=== PATIENT | male | born 1985 | race African-American/Black ===

== ENCOUNTER → 2021-01-13 13:33 | Outpatient (CLI) | payer BC, SELFPAY ==
[2021-01-13 13:43] LABS: Basophils % 0.6 % (0.1-2.0); Eosinophils # 0.7 K/mm3 (0.0-0.4); Eosinophils % 9.1 % (0.1-12.0); Hematocrit 47.9 % (42.0-52.0); Hemoglobin 15.7 g/dL (14.1-18.0); Lymphocytes # 2.2 K/mm3 (0.7-4.5); Lymphocytes % 30.6 % (10-50); Mean Corpuscular HGB Conc 32.9 g/dL (31.8-35.4); Mean Corpuscular Hemoglobin 31.2 pg (27.0-31.2); Mean Corpuscular Volume 95.1 fl (80-94); Mean Platelet Volume 9.6 fl (7.4-10.4); Monocytes # 0.4 K/mm3 (0.1-1.0); Monocytes % 5.4 % (1.7-9.3); Neutrophils # 3.9 K/mm3 (1.8-7.8); Neutrophils % 54.4 % (37.0-80.0); Platelet Count 215 K/mm3 (142-424); Red Blood Count 5.04 M/mm3 (4.60-6.20); White Blood Count 7.2 K/mm3 (4.8-10.8)
[2021-01-13 14:04] LABS: Alanine Aminotransferase 22 U/L (12-78); Albumin Level 4.3 g/dl (3.5-5.0); Albumin/Globulin Ratio 1.5 (1.1-1.8); Alkaline Phosphatase 83 U/L (38-126); Anion Gap 7.9 mEq/L (5-15); Aspartate Amino Transferase 26 U/L (17-59); Bilirubin,Total 0.4 mg/dl (0.2-1.3); Blood Urea Nitrogen 9 mg/dl (9-20); Calcium 9.5 mg/dl (8.4-10.2); Carbon Dioxide 27 mmol/L (22.0-30.0); Chloride 108 mmol/L (98-107); Chol/HDL Ratio 3.6 (1-3.5); Cholesterol 208 mg/dl (140-200); Estimated Glomerular Filt Rate 96 ml/min (>60); GFR (African American) 116 ML/MIN (>60); Globulin 2.9 g/dL (1.3-3.2); Glucose 79 mg/dl (74-100); HDL Cholesterol 58 mg/dl (40-60); Potassium 3.9 mmoL/L (3.5-5.1); Sodium 139 mmol/L (136-145); Total Protein,Serum 7.2 g/dl (6.3-8.2); Triglycerides 145 mg/dl (30-150); VLDL Cholesterol 29 mg/dL (0-40)
[2021-01-13 14:19] LABS: T4 (Thyroxine) 7.5 ug/dl (5.53-11.0)
[2021-01-13 14:32] LABS: Thyroid Stimulating Hormone 0.46 uIU/mL (0.465-4.68)
== END ==
PROVIDERS: Visit Provider Nurse Practitioner Family
DX: Z01.89 Encounter for other specified special examinations (principal)
CPT/HCPCS: 80053; 80061; 82306; 84436; 84443; 85025

== ENCOUNTER → 2021-02-14 11:04 | Outpatient (CLI) | payer BC, SELFPAY ==
[2021-02-14 11:34] LABS: Basophils # 0.1 K/mm3 (0-0.2); Basophils % 0.7 % (0.1-2.0); Eosinophils # 0.6 K/mm3 (0.0-0.4); Eosinophils % 8.4 % (0.1-12.0); Hematocrit 46.9 % (42.0-52.0); Hemoglobin 15.8 g/dL (14.1-18.0); Lymphocytes # 2.1 K/mm3 (0.7-4.5); Lymphocytes % 32.4 % (10-50); Mean Corpuscular HGB Conc 33.6 g/dL (31.8-35.4); Mean Corpuscular Hemoglobin 31.2 pg (27.0-31.2); Mean Corpuscular Volume 92.8 fl (80-94); Mean Platelet Volume 8.4 fl (7.4-10.4); Monocytes # 0.4 K/mm3 (0.1-1.0); Monocytes % 5.9 % (1.7-9.3); Neutrophils # 3.5 K/mm3 (1.8-7.8); Neutrophils % 52.6 % (37.0-80.0); Platelet Count 195 K/mm3 (142-424); Red Blood Count 5.06 M/mm3 (4.60-6.20); Red Cell Distribution Width 13.1 % (11.5-17.5); White Blood Count 6.6 K/mm3 (4.8-10.8)
[2021-02-14 14:20] LABS: Chloride 103 mmol/L (98-107); Sodium 138 mmol/L (136-145)
[2021-02-14 14:23] LABS: Blood Urea Nitrogen 9 mg/dl (9-20); Estimated Glomerular Filt Rate 85 ml/min (>60); GFR (African American) 103 ML/MIN (>60); Potassium 3.9 mmoL/L (3.5-5.1)
[2021-02-14 14:24] LABS: Anion Gap 9.9 mEq/L (5-15); Calcium 9.2 mg/dl (8.4-10.2); Carbon Dioxide 29 mmol/L (22.0-30.0); Glucose 96 mg/dl (74-100)
== END ==
PROVIDERS: Visit Provider Surgery
DX: Z01.812 Encounter for preprocedural laboratory examination (principal); Z11.52 Encounter for screening for COVID-19; Q34.9 Congenital malformation of respiratory system, unspecified
CPT/HCPCS: 36415; 80048; 85025; C9803; U0003; U0005

== ENCOUNTER 2021-02-15 06:57 | Day surgery (SDC) | payer BC, SELFPAY ==
[2021-02-15] VITALS (8 sets, daily range): BP systolic 118–136; BP diastolic 57–96; PULSE 72–86; RESP 14–18; TEMP 36.2–37.4; O2SAT 94–100; BMI 27.3
--- NOTE | 2021-02-15 09:10 | HMH.ANESCL ---
[facility] Anesthesia Checklist - Patient Identification Patient Identification: Arm Band - Structural Data Admitted From: Home Planned Operative Procedure/s: Excision sebaceous cyst Consent for Planned Operative Procedure(s) Verified: Yes - NPO Status Verified Time NPO: 00:00 - Additional verifications Anesthesia Reactions: No Hx Blood Transfusions: No Blood Transfusion Reaction: No - Airway Assessment C-Spine Mobility Assessed: Yes TMJ Mobility Assessed: Yes Dentition: Good Dentition - Neurological Assessment Level of Consciousness: Awake Hx Seizures: No Numbness or tingling in extremities: No - Anesthesia Plan Anesthesia Risk discussed: Yes Anesthesia Plan: Verified ASA Class: I Anesthesia Type: General [facility] History I have reviewed the patient's past medical history: Yes Medical History: Denies:: Asthma, Cancer, Diabetes Mellitus Type 1, Diabetes Mellitus Type 2, Internal Pacemaker, MRSA, Seizures *Have you ever received a pneumonia vaccine?: No *Have you received a flu vaccine this season?: No Other Medical History: Denies: Blood Transfusion Reaction Anesthesia experience/problems:: None Other Surgeries: Yes: No Previous Surgery, Other. No: Pacemaker Amputation: No Fractures: Yes - *Social History Last grade of school completed: High school graduate Smoking Status: Current every day smoker Tobacco Type: cigarettes # Packs/Day (cigarettes): 1 Alcohol Intake: current Alcohol Intake Frequency:: holidays/special occasions only Substance Use Type: marijuana *Occupational Status:: employed Housing: house Household Members: family *Travel in the last 8 weeks: None Family Hx:: Cancer
--- NOTE | 2021-02-15 10:23 | P.OP_ITS ---
Date of procedure: 02/15/21 Pre-op Diagnosis:: Inflamed sebaceous cyst on the chest Post-op Diagnosis:: Same Procedure performed:: Excision of inflamed sebaceous cyst Surgeon:: Piotr Alvarez MD [employer]:: Shaheed Vasquez Anesthesia: LMA Estimated blood loss (mL): 5 Clinical Note:: Patient recently presented for follow-up of the sebaceous cyst on his left mid chest. He is a 35-year-old male. He was referred by Kole Richmond for cyst on the chest and originally seen in the office on 01/24/2021. He was found to have what appeared to be an inflamed sebaceous cyst near the mid chest. He has tenderness when he abducts the left upper extremity. Denies any inciting event. Denies any drainage. After I initially saw him as a consultation I put him on some antibiotics consisting of Bactrim and cephalexin. He presents back stating the area has not significantly changed. He still has some focal tenderness. Given the persistence despite medical management plan was made for excision with possible closure. Operative findings:: Consistent with ruptured inflamed sebaceous cyst with ill-defined borders. Operative note:: Consent was obtained and patient was taken to the operating room. He was given preoperative antibiotic. He was positioned supine position. General anesthesia was induced. The area was prepped and draped. Lesion was marked with a skin marker for planned elliptical incision. Local anesthetic was infiltrated. Limited skin incision was made. There was some fluid and caseous material which exuded. There was no clearly defined cyst capsule as the cyst capsule had been obliterated. The wound was debrided. Wound was irrigated. Stasis was achieved with electrocautery. A couple of subdermal interrupted 3-0 Vicryl sutures were placed. Skin was closed loosely with interrupted 3-0 nylon. Clean dry sterile dressing was applied. Condition: stable Disposition: PACU Specimens:: Cyst Complications:: None immediately apparent
--- NOTE | 2021-02-15 10:28 | P.PN_ITS ---
[facility] Anesthesia Record Part I Intake, IV Amount: 800 Estimated blood loss (mL): 0 Urine output (mL): 0 Blood Pressure: 119/66 SaO2: 94 Pulse Rate: 79 Respiratory Rate: 14 Temperature: 99.4 F Patient is:: Drowsy Stable to PACU at:: 10:25
--- NOTE | 2021-02-15 10:55 | SUR.PHASEI ---
1054- report given to thuan hawkins in post op at this time.
--- NOTE | 2021-02-16 19:50 | P.PN_ITS ---
[facility] Anesthesia Record Part II Discharge Time: 10:55 Destination: home PACU nurse assessment reviewed?: Yes Patient Condition:: Good Anesthesia Complications:: None none Swallowing reflex intact?: Yes Cyanosis?: No Blood Pressure: 132/84 Pulse Rate: 78 Temperature: 97.1 F Mental Status: Alert & Oriented Pain level:: 0 Nausea and/or vomitting:: None Intake, IV Amount: 0
[2021-02-16 19:51] VITALS: BP 132/84; PULSE 78; TEMP 36.2
== END 2021-02-15 11:30 | disposition home or self-care (01) ==
LOC: OR 06:58
PROVIDERS: PCP Physician Assistant; Visit Provider Surgery
PROC: (CPT 11400; principal; 2021-02-15 09:45)
DX: L72.3 Sebaceous cyst (principal)
CPT/HCPCS: 11400; 12031; 96374

== ENCOUNTER 2021-03-27 10:23 | Emergency (ER) | payer BC, SELFPAY ==
[2021-03-27 11:45] VITALS: BP 122/75; PULSE 95; RESP 18; TEMP 37.1; O2SAT 95; BMI 27.3
--- NOTE | 2021-03-27 12:17 | HMH.EDUTC ---
[facility] Disposition Clinical Impression: COVID-19 virus test result unknown Upper respiratory infection Qualifiers: URI type: unspecified viral URI Qualified Code(s): J06.9 - Acute upper respiratory infection, unspecified Disposition: Home, Self-Care Condition on Discharge: Good Instructions: DI for COVID-19 (Suspected or Confirmed ) Additional Instructions: covid swab was sent to lab, call later today for results. self isolate until test results are known to be negative No sign of a bacterial infection. Likely viral. Viruses can take 7-14 days to run their course. Nasal saline and bulb syringe or nose Maribeth to remove nasal drainage to help with nasal congestion. Hard to eat, drink, sleep with nasal congestion so important to keep this cleaned out. Monitor temp. Tylenol or Motrin as needed for pain or fever Encourage fluids, water, Gatorade, Powerade, Pedialyte if /toddler/child Warm salt water gargles Warm fluids Sore throat lozenges Sleep elevated Humidifier/vaporizer Follow-up immediately for new or worsening symptoms or no noticeable improvement over the next 48-72 hours. Referrals: Aylin Covington PA [Primary Care Provider] - Time of Disposition: 12:19 Medical Decision Making - [place] Inquiry Pt receiving controlled substance: No Vital Signs: 03/27/21 11:45 Temperature 98.7 F Temperature Source Oral Pulse Rate [Right Radial] 95 H Respiratory Rate 18 Blood Pressure [Right Arm] 122/75 Blood Pressure Mean [Right Arm] 90 Blood Pressure Source [Right Arm] Automatic Cuff Blood Pressure Position [Right Arm] Sitting 02 Sat by Pulse Oximetry 95 Oxygen Delivery Method Room Air Orders (Tests/Meds): ORDERS Category Date Time Status Covid-19 Nasal PCR ([facility]) Routine Lab 03/27/21 11:51 Received [facility] HPI - General Chief complaint: Urgent [facility] Stated complaint: fever/chills, h/a Time Seen by Provider: 03/27/21 12:17 Mode of Arrival: Ambulatory Source of Information: Patient Limitations: No Limitations Description of Symptoms (Recalled from Triage Doc. by RN): Pt stated that he has had a Head Ache, and body chills since last night. HEENT Symptoms (Recalled from RN notes): No Resp Symptoms (Recalled from RN notes): No Skin Symptoms (Recalled from RN notes): No MS Symptoms (Recalled from RN notes): No Functional Status (Recalled from RN notes): n/a - History of Present Illness Provider Complaint: 35 yr old male presenets for body aches and chills since last pm - Related Data Allergies Allergy/AdvReac Type Severity Reaction Status Date / Time No Known Allergies Allergy Verified 03/27/21 11:50 - Worker's Comp Is this a Worker's Comp case?: No H History - Hepatitis A Screen Drug use history?: No High risk sexual behaviors?: No History of sexually transmitted infection?: No Currently employed?: No Childcare worker?: No Do you have indoor plumbing?: Yes Do you have electricity?: Yes Attestation statement:: This patient has been screened for Hepatitis A risk factors. I have reviewed the patient's past medical history: Yes Medical History: Denies:: Asthma, Cancer, Diabetes Mellitus Type 1, Diabetes Mellitus Type 2, Internal Pacemaker, MRSA, Seizures Other Medical History: Denies: Blood Transfusion Reaction Other Surgeries: Yes: No Previous Surgery, Other. No: Pacemaker Amputation: No Fractures: Yes Comment: ankle - Social History Smoking Status: Current every day smoker Tobacco Type: cigarettes # Packs/Day (cigarettes): 1 Alcohol Intake: current Alcohol Intake Frequency:: holidays/special occasions only Substance Use Type: marijuana Occupational Status: employed Housing: house Household Members: family Family Hx:: Cancer ROS Obtained: Yes Systems reviewed as appropriate & no additional complaints - Constitutional Constitutional: Reports system reviewed and no additional complaints, except as docu, Reports body ache, Reports chills, Reports fev
[2021-03-27 12:21] VITALS: BP 122/75; PULSE 95; RESP 18; TEMP 37.1; O2SAT 95
== END 2021-03-27 12:25 | disposition home or self-care (01) ==
PROVIDERS: Emergency Provider Nurse Practitioner Family; PCP Physician Assistant
DX: U07.1 COVID-19 (principal); J06.9 Acute upper respiratory infection, unspecified; F17.210 Nicotine dependence, cigarettes, uncomplicated
CPT/HCPCS: 99202; C9803; G0463; U0003; U0005

== ENCOUNTER 2023-05-04 22:56 | Outpatient (CLI) | payer OTHER, SELFPAY ==
[2023-05-04 17:54] LABS: Basophils # 0.1 K/mm3 (0-0.2); Basophils % 0.9 % (0.1-2.0); Eosinophils # 0.6 K/mm3 (0.0-0.4); Eosinophils % 8.5 % (0.1-12.0); Hematocrit 50.9 % (42.0-52.0); Hemoglobin 17.4 g/dL (14.1-18.0); Lymphocytes # 1.9 K/mm3 (0.7-4.5); Mean Corpuscular HGB Conc 34.2 g/dL (31.8-35.4); Mean Corpuscular Hemoglobin 31.5 pg (27.0-31.2); Mean Corpuscular Volume 92.2 fl (80-94); Mean Platelet Volume 10.6 fl (7.4-10.4); Monocytes # 0.4 K/mm3 (0.1-1.0); Neutrophils # 3.7 K/mm3 (1.8-7.8); Neutrophils % 56.5 % (37.0-80.0); Platelet Count 169 K/mm3 (142-424); Red Blood Count 5.52 M/mm3 (4.60-6.20); Red Cell Distribution Width 12.9 % (11.5-17.5); White Blood Count 6.6 K/mm3 (4.8-10.8)
[2023-05-04 17:59] LABS: Alanine Aminotransferase 43 U/L (12-78); Albumin Level 4.3 g/dl (3.5-5.0); Albumin/Globulin Ratio 1.5 (1.1-1.8); Alkaline Phosphatase 84 U/L (38-126); Aspartate Amino Transferase 37 U/L (17-59); Bilirubin,Total 0.7 mg/dl (0.2-1.3); Blood Urea Nitrogen 9 mg/dl (9-20); Calcium 9.4 mg/dl (8.4-10.2); Carbon Dioxide 24 mmol/L (22.0-30.0); Chloride 108 mmol/L (98-107); Chol/HDL Ratio 5.5 (1-3.5); Cholesterol 220 mg/dl (140-200); Estimated Glomerular Filt Rate 94 ml/min (>60); GFR (African American) 114 ML/MIN (>60); Globulin 2.9 g/dL (1.3-3.2); Glucose 132 mg/dl (74-100); HDL Cholesterol 40 mg/dl (40-60); Sodium 139 mmol/L (136-145); Total Protein,Serum 7.2 g/dl (6.3-8.2); Triglycerides 136 mg/dl (30-150); VLDL Cholesterol 27 mg/dL (0-40)
[2023-05-04 18:10] LABS: Direct LDL Cholesterol 125.47 mg/dL (100-129)
[2023-05-04 18:18] LABS: 25-OH Vitamin D, Total < 12.8 ng/mL (30-100)
[2023-05-07 12:44] LABS: Free Thyroxine Index 2.5 ug/dL (5.93-13.13); T4 (Thyroxine) 7.7 ug/dl (5.53-11.0); Triiodothryronine (T3) Uptake 33 % (23.5-40.5)
[2023-05-07 12:58] LABS: Thyroid Stimulating Hormone 0.09 uIU/mL (0.465-4.68)
== END 2023-05-04 23:59 ==
LOC: LAB.DROPOF 22:57
PROVIDERS: PCP Family Medicine; Visit Provider Family Medicine
DX: R53.83 Other fatigue (principal); E55.9 Vitamin D deficiency, unspecified; Z68.29 Body mass index [BMI] 29.0-29.9, adult
CPT/HCPCS: 80053; 80061; 82306; 84436; 84443; 84479; 85025

== ENCOUNTER 2023-05-07 06:42 | Outpatient (CLI) | payer OTHER, SELFPAY | END 2023-05-07 23:59 | PROVIDERS: PCP Family Medicine; Visit Provider Family Medicine | DX: R53.83 Other fatigue (principal) | CPT/HCPCS: 84436; 84443; 84479 ==

== ENCOUNTER 2025-03-20 14:29 | Emergency (ER) | payer OTHER, SELFPAY ==
--- OUTSIDE RECORDS SUMMARY | 2025-03-17 10:47 | XMS_ITS | Continuity of Care Document ---
Author Organization [facility] Phone Care Team Providers Care Top Lift Trimmer Name Role Phone MARIA FERNANDA GOMEZ Primary Attending Unavailable MARIA FERNANDA GOMEZ Unavailable Unavailable MARIA FERNANDA GOMEZ Admitting Unavailable NO, FAMILY P Primary Care ALLERGIES AND ADVERSE REACTIONS ALLERGIES AND ADVERSE REACTIONS Code System Allergy Substance Adverse Reaction Date Reaction (Severity) Comment Status Reported By Updated By No Known Allergies [id number] on March 16, 2025 12:52:01 AM UT RESULTS Patient: FRANCES WARNER Date of : 1985 LABORATORY RESULTS ORDER 200: THYROID STIMULATI NG HORMONE (LOINC: 3016-3) ORDER DATE: March 16, 2025 12:59:00 AM UTC Specimen Source: Serum/Plasm a Specimen Type: Acellular blo od (serum or plasma) specimen PERFORMING LAB: [address] [id number] Result Comment: Final Result Date: March 16, 2025 1:38:00 AM UTC (TECH: SF) LOINC TEST FLAG RESULT REFERENCE RANGE UPDA RUDDY BY 3016-3 Thyrotropin [Units/volume] in Serum or Plasma N 0.41 mIU/mL 0.34 mIU/mL - 4.80 mIU/mL March 16, 2025 1:38:00 AM UTC (TECH: SF) ORDER 300: CBC AUTO W DIFF ( LOINC: 94155-3) ORDER DATE: March 16, 2025 12:59:00 AM UTC Specimen Source: Whole Blood Specimen Type: Whole blood s ample PERFORMING LAB: [address] [id number] Result Comment: Final Result Date: March 16, 2025 1:18:00 AM UTC (TECH: [employer]) LOINC TEST FLAG RESULT REFERENCE RANGE UPDA RUDDY BY 6690-2 Leukocytes [#/volume] in Blood by Automated count N 7.5 10^3/uL 4.5 10^3/uL - 11.5 10^3/uL March 16, 2025 1:18:00 AM UTC ([employer]) 789-8 Erythrocytes [#/volume] in Blood by Automated count N 5.46 10^6/uL 4.25 10^6/uL - 5.57 10^6/uL March 16, 2025 1:18:00 AM UTC ([employer]) 718-7 Hemoglobin [Mass/volume] in Blood N 16.6 g/dL 13.5 g/dL - 17.2 g/dL March 16, 2025 1:18:00 AM UTC ([employer]) 21669-7 Hematocrit [Volume Fraction] of Blood N 49.1 % 42.0 % - 52.0 % March 16, 2025 1:18:00 AM UTC ([employer]) 787-2 Erythrocyte mean corpuscular volume [Entitic volume] by Automated count N 89.9 fl 80 fl - 95 fl March 16, 2025 1:18:00 AM UTC ([employer]) 87383-4 Erythrocyte mean corpuscular hemoglobin [Entitic mass] in Blood from [place]etus by Automated count N 30.4 pg 27.0 pg - 34.0 pg March 16, 2025 1:18:00 AM UTC ([employer]) 69804-3 Erythrocyte mean corpuscular hemoglobin concentration [Mass/volume] in Blood from Fetus by Automated count N 33.8 g/dL 32.0 g/dL - 36.0 g/dL March 16, 2025 1:18:00 AM UTC ([employer]) 08618-5 Platelets [#/volume] in Blood N 187 10^3/uL 150 10^3/uL - 450 10^3/uL March 16, 2025 1:18:00 AM UTC ([employer]) 79878-2 Erythrocyte distribution width [Ratio] L 11.9 % 12.3 % - 15.1 % March 16, 2025 1:18:00 AM UTC (TECH: [employer]) 69252-9 Platelet mean volume [Entitic volume] in Blood by Automated count H 10.5 fl 7.4 fl - 10.4 fl March 16, 2025 1:18:00 AM UTC (TECH: SF) 92760-1 Granulocytes/100 leukocytes in Blood by Automated count N 53.0 % 40 % - 75 % March 16, 2025 1:18:00 AM UTC (TECH: SF) 736-9 Lymphocytes/100 leukocytes in Blood by Automated count N 30.8 % 15 % - 57 % March 16, 2025 1:18:00 AM UTC (TECH: SF) 5905-5 Monocytes/100 leukocytes in Blood by Automated count N 8.1 % 4.0 % - 12.0 % March 16, 2025 1:18:00 AM UTC (TECH: SF) 713-8 Eosinophils/100 leukocytes in Blood by Automated count H 7.2 % 0.0 % - 4.0 % March 16, 2025 1:18:00 AM UTC (TECH: SF) 706-2 Basophils/100 leukocytes in Blood by Automated count N 0.4 % 0.0 % - 1.0 % March 16, 2025 1:18:00 AM UTC (TECH: SF) 98255-0 Immature granulocytes [#/volume] in Blood N 0.5 % 0.0 % - 0.8 % March 16, 2025 1:18:00 AM UTC (TECH: SF) 95266-0 Granulocytes [#/volume] in Blood by Automated count N 3.97 10^3/uL March 16, 2025 1:18:00 AM UTC (TECH: SF) 731-0 Lymphocytes [#/volume] in Blood by Automated count N 2.31 10^3/uL March 16, 2025 1:18:00 AM UTC (TECH: SF) 742-7 Monocytes [#/volume] in Blood by Automated count N 0.61 10^3/uL March 16, 2025 1:18:00 AM UTC (TECH: SF) 711-2 Eosinophils [#/volume] in Blood by Automated count N 0.54 10^3/uL March 16, 2025 1:18:00 AM UTC (TECH: SF) 704-7 Basophils [#/volume] in Blood by Automated count N 0.03 10^3/uL March 16, 2025 1:18:00 AM UTC (TECH: SF) 15945-3 Immature granulocytes [#/volume] in Blood N 0.04 10^3/uL March 16, 2025 1:18:00 AM [facility] ([employer]) 03461-0 Manual differential performed [Presence] in Blood N NO March 16, 2025 1:18:00 AM [facility] ([employer]: [employer]) ORDER 400: COMP METABOLIC PA SHOSHANA (LOINC: 77363-0) ORDER DATE: March 16, 2025 12:59:00 AM [facility] Specimen Source: Serum/Plasm a Specimen Type: Acellular blo od (serum or plasma) specimen PERFORMING LAB: [address] [id number] Result Comment: Final Result Date: March 16, 2025 1:38:00 AM [facility] ([employer]: [employer]) LOINC TEST FLAG RESULT REFERENCE RANGE UPDA RUDDY BY 2951-2 Sodium [Moles/volume ] in Serum or Plasma N 141 mmol/L 136 mmol/L - 145 mmol/L March 16, 2025 1:38:00 AM [facility] ([employer]) 2823-3 Potassium [Moles/volume] in Serum or Plasma N 3.9 mmol/L 3.5 mmol/L - 5.1 mmol/L March 16, 2025 1:38:00 AM [facility] ([employer]) 2075-0 Chloride [Moles/volume] in Serum or Plasma N 107 mmol/L 98 mmol/L - 107 mmol/L March 16, 2025 1:38:00 AM [facility] ([employer]) 8-9 Carbon dioxide, tota l [Moles/volume] in Serum or Plasma N 26 mmol/L 21 mmol/L - 32 mmol/L March 16, 2025 1:38:00 AM [facility] ([employer]) 09146-1 Anion gap 3 in Serum or Plasma N 8.0 March 16, 2025 1:38:00 AM [facility] ([employer]) 2345-7 Glucose [Mass/volume ] in Serum or Plasma H 129 mg/dL 70 mg/dL - 110 mg/dL March 16, 2025 1:38:00 AM [facility] ([employer]: [employer]) 3094-0 Urea nitrogen [Mass/volume] in Serum or Plasma N 13 mg/dL 7 mg/dL - 18 mg/dL March 16, 2025 1:38:00 AM [facility] ([employer]) 2160-0 Creatinine [Mass/volume] in Serum or Plasma N 1.2 mg/dL 0.8 mg/dL - 1.3 mg/dL March 16, 2025 1:38:00 AM [facility] ([employer]) 3097-3 Urea nitrogen/Creatinine [Mass Ratio] in Serum or Plasma N 10.8 9 - March 16, 2025 1:38:00 AM [facility] ([employer]) 38078-7 Glomerular filtratio n rate/1.73 sq M.predicted by Creatinine-based formula (MDRD) N 79 mL/min >60 March 16, 2025 1:38:00 AM [facility] ([employer]) 61732-8 Osmolality of Serum or Plasma by calculated by sum of electrolytes N 295 mosm/kg 275 mosm/kg - 301 mosm/kg March 16, 2025 1:38:00 AM [facility] ([employer]) 2885-2 Protein [Mass/volume ] in Serum or Plasma N 7.5 g/dL 6.4 g/dL - 8.2 g/dL March 16, 2025 1:38:00 AM [facility] ([employer]) 1751-7 Albumin [Mass/volume ] in Serum or Plasma N 3.9 g/dL 3.4 g/dL - 5.0 g/dL March 16, 2025 1:38:00 AM [facility] ([employer]) 89607-1 Calcium [Mass/volume ] in Serum or Plasma N 9.1 mg/dL 8.5 mg/dL - 10.1 mg/dL March 16, 2025 1:38:00 AM [facility] ([employer]) 47030-7 Calcium [Mass/volume ] corrected for total protein in Serum or Plasma N 9.2 mg/dL 8.5 mg/dL - 10.1 mg/dL March 16, 2025 1:38:00 AM [facility] ([employer]) 1975-2 Bilirubin.total [Mass/volume] in Serum or Plasma L 0.3 mg/dL 0.4 mg/dL - 1.5 mg/dL March 16, 2025 1:38:00 AM [facility] ([employer]: [employer]) 1920-8 Aspartate aminotransferase [Enzymatic activity/volume] in Serum or Plasma N 17 U/L 15 U/L - 37 U/L March 16, 2025 1:38:00 AM UTC (TECH: [employer]) 1742-6 Alanine aminotransferase [Enzymatic activity/volume] in Serum or Plasma N 41 U/L 12 U/L - 78 U/L March 16, 2025 1:38:00 AM UTC (TECH: [employer]) 6768-6 Alkaline phosphatase [Enzymatic activity/volume] in Serum or Plasma N 100 U/L 50 U/L - 170 U/L March 16, 2025 1:38:00 AM UTC (TECH: [employer]) ORDER 500: MAGNESIUM (LOINC: 83804-6) ORDER DATE: March 16, 2025 12:59:00 AM UTC Specimen Source: Serum/Plasm a Specimen Type: Acellular blo od (serum or plasma) specimen PERFORMING LAB: [address] [id number] Result Comment: Final Result Date: March 16, 2025 1:38:00 AM UT (TECH: [employer]) LOINC TEST FLAG [place] [address]-2 Magnesium [Mass/volume] in Serum or Plasma N 2.3 mg/dL 1.8 mg/dL - 2.4 mg/dL March 16, 2025 1:38:00 AM UT (TECH: [employer]) ORDER 600: UA AND MICRO/CULT IF INDICATED (LOINC: 92684-8) ORDER DATE: March 16, 2025 12:59:00 AM UTC Specimen Source: URINE Specimen Type: Urine specime n PERFORMING LAB: [address] [id number] Result Comment: Final Result Date: March 16, 2025 1:06:00 AM UT (TECH: [employer]) LOINC TEST FLAG RESULT REFERENCE RANGE UPDA RUDDY BY 5778-6 Color of Urine N yellow YELLOW Decem 2024 1:06:00 AM UTC (TECH: SF) 5767-9 Appearance of Urine N clear CLEAR March 16, 2025 1:06:00 AM UTC (TECH: SF) 5792-7 Glucose [Mass/volume] in Urine by Test strip N NORM NORMAL March 16, 2025 1:06:00 AM UT (TECH: [employer]) 12056-4 Bilirubin.total [Mass/volume] in Urine by Automated test strip N NEGATIVE NEGATIVE March 16, 2025 1:06:00 AM UTC (TECH: [employer]) 5797-6 Ketones [Mass/volume] in Urine by Test strip N NEGATIVE NEGATIVE March 16, 2025 1:06:00 AM UTC (TECH: [employer]) 2965-2 Specific gravity of Urine N 1.005 1.005 - 1.035 March 16, 2025 1:06:00 AM UTC (TECH: [employer]) 07916-0 Erythrocytes [#/volume] in Urine by Automated test strip N NEGATIVE NEGATIVE March 16, 2025 1:06:00 AM UTC (TECH: [employer]) 51394-9 pH of Urine by Automated test strip N 7.00 5.0 - 7.5 March 16, 2025 1:06:00 AM UTC (TECH: [employer]) 96381-4 Protein [Presence] in Urine by Test strip N 15 (TRACE) mg/dL NEGATIVE March 16, 2025 1:06:00 AM UTC (TECH: [employer]) 05607-0 Urobilinogen [Mass/volume] in Urine by Automated test strip N NORM NORMAL March 16, 2025 1:06:00 AM UTC (TECH: [employer]) 69732-7 Nitrate [Presence] in Urine N NEGATIVE NEGATIVE March 16, 2025 1:06:00 AM UTC (TECH: SF) 19701-2 Leukocytes [#/volume] in Urine by Test strip N NEGATIVE NEGATIVE March 16, 2025 1:06:00 AM UTC (TECH: [employer]) 30468-8 Other elements in Urine sediment N NOT REQUIRED March 16, 2025 1:06:00 AM UTC (TECH: [employer]) 21998-2 Microscopic observation [Identifier] in Urine sediment by Light microscopy N NO March 16, 2025 1:06:00 AM UTC (TECH: SF) ORDER 700: URINE DRUG SCREEN - EXL MAX (LOINC: 40444-5) ORDER DATE: March 16, 2025 12:59:00 AM UTC Specimen Source: URINE Specimen Type: Urine specime n PERFORMING LAB: [address] [id number] Result Comment: Final Result Date: March 16, 2025 1:20:00 AM UTC (TECH: SF) LOINC TEST FLAG [place] [address]-6 Amphetamine+Methamph etamine [Presence] in Urine N NEGATIVE NEGATIVE March 16, 2025 1:20:00 AM UTC (TECH: SF) 3377-9 Barbiturates [Presen ce] in Urine N NEGATIVE NEGATIVE March 16 1:20:00 AM UTC (TECH: SF) 09175-9 Benzodiazepine metab olites [Presence] in Urine by Screen method N NEGATIVE NEGATIVE March 16 1:20:00 AM UTC (TECH: SF) 3414-0 Buprenorphine [Prese nce] in Urine N NEGATIVE NEGATIVE March 16 1:20:00 AM UTC (TECH: SF) 3397-7 Cocaine [Presence] in Urine N NEGATIVE NE GATIVE March 16, 2025 1:20:00 AM UTC (TECH: SF) 26633-3 Methadone [Presence] in Specimen N NEGATIVE NEGATIVE March 16 1:20:00 AM UTC (TECH: SF) 53904-6 Opiates [Mass/volume ] in Specimen N NEGATIVE NEGATIVE March 16 1:20:00 AM UTC (TECH: SF) 84976-6 oxyCODONE [Presence] in Specimen N NEGATIVE NEGATIVE March 16 1:20:00 AM UTC (TECH: SF) 3427-2 Cannabinoids [Presen ce] in Urine N NEGATIVE NEGATIVE March 16 1:20:00 AM UTC (TECH: SF) 47826-8 Phencyclidine [Prese nce] in Specimen N NEGATIVE NEGATIVE March 16 1:20:00 AM UTC (TECH: SF) 66854-8 Fentanyl [Presence] in Urine N NEGATIVE NEGATIVE March 16 1:20:00 AM UTC (TECH: SF) 14553-3 Tricyclic antidepres sants [Presence] in Specimen N NEGATIVE NEGATIVE March 16, 2025 1:04:00 AM UTC (TECH: SF) 87742-3 Internal control result N PASS PASS March 16, 2025 1:04:00 AM UTC (TECH: SF) LABORATORY NARRATIVE RESULTS Information is not available RADIOLOGY RESULTS Information is not available PATHOLOGY NARRATIVE RESULTS Information is not available MICROBIOLOGY RESULTS No Micro Labs/Results Exist for Patient BLOOD ADMIN RESULTS Information is not available MEDICATIONS HOME MEDICATIONS Status RXNORM NDC Medication Dose Route Frequency Dates Comments Reported By Updated By Patient not on Self-Medications [id number] on March 16, 2025 12:52:00 AM UT DISCHARGE MEDICATIONS Status RXNORM NDC Medication Dose Route Frequency Dates Dis pense Data Comments Physician Updated By No Discharge Medication Info rmation Available INPATIENT MEDICATIONS Status RXNORM NDC Medication Dose Route Frequency Rat e Quantity Dates Indication Dispense Data Comments Physician Updated By No Inpatient Medication Info rmation Available SOCIAL HISTORY SOCIAL HISTORY - Smoking Status SNOMED-CT Social History Element Description Effective Dates Offered Cessation Comment Updated By [id number] Current Tobacco smoking status Unknown If Ever Smoked [id number] on March 16, 2025 12:52:17 AM [place] [id number] Historical Tobacco smoking status Current Some Day Smoker [id number] on March 16, 2024 1:26:33 PM UT SOCIAL HISTORY - Gender Sex: Male SOCIAL HISTORY - Status : status i nformation is not available Intention in Next Year: intention information is not available SOCIAL HISTORY - Assessments Code System Description Status Date Value of Assessment Updated By Comment Assessment Information is no t available SOCIAL HISTORY - [place] Affiliation [place] information is not av ailable SOCIAL HISTORY - Legal Sex Legal Sex : Male (finding) SOCIAL HISTORY - Sexual Behavior Sexual Orientation Gender Identity SNOMED-CT Description SNO MED -CT Description Activity Level No of Partners Partner Type UpdatedBy Information is not available SOCIAL HISTORY - Occupation Occupation information is no t available VITAL SIGNS PATIENT VITAL SIGNS This section displays the mo st recent value for each vital sign as of March 17, 2025 3:47:22 PM UT Loinc Code Vital Sign Activity Date Result Updated By 8310-5 Body temperature March 16 12:49:41 AM UT 97.4 [degF] [id number] on March 17, 2025 1:52:[place] [address]-8 Body weight Measured March 12:51:03 AM UT 84.0 kg (185.0 lb) [id number] on March 16, 2025 12:51:03 AM UT 8462-4 Diastolic blood pressure March 16, 2025 1:52:12 AM UT 87.0 mm[Hg] [id number] on March 17, 2025 1:52:56 AM [facility] 8867-4 Heart rate March 16 1:52:12 AM UT 78 /min [id number] on March 17, 2025 1:52:56 AM [facility] 22838-2 Oxygen saturation in Arterial blood by Pulse oximetry March 16, 2025 1:52:12 AM [facility] 99.0 % [id number] on March 17, 2025 1:52:56 AM [facility] 9279-1 Respiratory rate March 16 1:52:12 AM [facility] 18 /min [id number] on March 17, 2025 1:52:56 AM [facility] 8480-6 Systolic blood pressure March 16, 2025 1:52:12 AM [facility] 152.0 mm[Hg] [id number] on March 17, 2025 1:52:56 AM [facility] PEDIATRIC GROWTH CHART - VITAL SIGNS This section displays Head C ircumference Percentile, Weight for Length Percentile and BMI Percentile Loinc Code Pediatric Measure Age (Months) Result Updat ed By No Pediatric Growth Chart Pe rcentile Information Available. ENCOUNTERS ENCOUNTER INFORMATION Reason for Visit ANXIETY Admission March 16, 2025 12:43:[address] [id number] Discharge March 16, 2025 1:52:00 AM [facility] DISCHARGED TO HOME OR SELF CARE ENCOUNTER DIAGNOSES Notes information is not marti ilable. Code System Diagnosis Onset Date Diagnosis information is not available. ABSTRACT DIAGNOSES Code System Diagnosis Updated By Abatement Date F41.9 ICD10 ANXIETY DISORDER, UNSPECIFIE D [id number] on March 17, 2025 3:46:45 PM [facility] H53.8 ICD10 OTHER VISUAL DISTURBANCES BY E3630 on March 17, 2025 3:46:45 PM [facility] R20.2 ICD10 PARESTHESIA OF SKIN [id number] on March 17, 2025 3:46:45 PM [facility] R20.2 ICD10 PARESTHESIA OF SKIN [id number] on March 17, 2025 3:46:45 PM [facility] H53.8 ICD10 OTHER VISUAL DISTURBANCES BY E3630 on March 17, 2025 3:46:45 PM [facility] R03.0 ICD10 ELEVATED BLOOD-P RESSURE READING, WITHOUT DIAGNOSIS OF HYPERTENSION [id number] on March 17, 2025 3:46:45 PM [facility] CARE TEAM Care Top Lift Trimmer Role MARIA FERNANDA GOMEZ Primary Attending MARIA FERNANDA GOMEZ Referring MARIA FERNANDA GOMEZ Admitting FAMILY NO Primary Care CARE TEAM CARE ordnance mechanic Role on Team Location Telecom Status Start Date End Abraham e Updated By WEHRMAN MARIA FERNANDA E MD PHY Referring [address] [place], [address] normal March 16, 2025 12:52:00 AM UTC March 16, 2025 12:52:00 AM UTC [id number] on March 16, 2025 12:52:00 AM UTC JASON Campo MD, MD Referring [address] [place] [place], [address] normal March 16, 2025 12:52:00 AM UTC March 16, 2025 1:52:00 AM UTC [id number] on March 16, 2025 12:52:00 AM UTC JASON Campo MD, PHY Attending [address] [place], [address] normal March 16, 2025 12:52:00 AM UTC March 16, 2025 12:52:00 AM UTC [id number] on March 16, 2025 12:52:00 AM UTC JASON Campo MD, MD Attending [address] [place], [address] normal March 16, 2025 12:52:00 AM UTC March 16, 2025 1:52:00 AM UTC [id number] on March 16, 2025 12:52:00 AM UTC JASON Campo MD PHY Admitting [address] [place], [address] normal March 16, 2025 12:52:00 AM UTC March 16, 2025 12:52:00 AM UTC [id number] on March 16, 2025 12:52:00 AM UTC JASON Campo MD, MD Admitting [address] [place], [address] normal March 16, 2025 12:52:00 AM UTC March 16, 2025 1:52:00 AM UTC [id number] on March 16, 2025 12:52:00 AM UTC NO FAMILY PHYSICIAN PCP [address] [place], [address] normal March 16, 2025 12:43:53 AM UTC March 16, 2025 1:52:00 AM UTC [id number] on March 16, 2025 12:52:00 AM UTC INSURANCE PROVIDERS INSURANCE PROVIDER Coverage Status - Effective Date Coverage Type Payor Plan Order Relationship To Subscriber Insurance Plan No Insurance Plan 2024-04-02 C PRIMARY 18 [phone] [employer]
[2025-03-20 14:40] VITALS: BP 134/99; PULSE 78; RESP 19; TEMP 36.7; O2SAT 98; BMI 28.8
--- OUTSIDE RECORDS SUMMARY | 2025-03-20 14:43 | XMS_ITS | Clinical Summary ---
[facility] [address] [place] [address] Care Team Providers Care Sap Portal Architect Name Role Phone Provider, No Known Primary Care Provider Unavail able Allergies No known active allergies Medications azithromycin (ZITHROMAX Z-ALE) 250 MG tablet Take 2 tablets the first day, then 1 tablet daily for 4 days. 6 tablet 08/21/2018 Active Family History Medical History Relation Name Comments Cancer Mother Diabetes Mother Relation Name Status Comments Mother Social History Tobacco Use Types Packs/Day Years Used Date Smoking Tobacco: Every Day Abuse Screen Answer Date Recorded Unsafe at Home or Work/School Not on file Feels Threatened by Someone? Not on file 03/2023 Does Anyone Keep You from Co ntacting Others or Doint Things Outside the Home? Not on file 01/11/2023 Physical Sign of Abuse Present Not on file 1 Housing Stability Answer Date Recorded Current Living Arrangements Not on file 12/31 Potentially Unsafe Housing Conditions Not on jose r e 01/11/2023 Family and Community Support Answer Abraham e Recorded Help with Day-to-Day Activities Not on file 01/11/2023 Lonely or Isolated Not on file 01/11/2023 Employment Answer Date Recorded Do you want help finding or keeping work or a lucy b? Not on file 01/11/2023 Disabilities Answer Date Recorded Concentrating, Remembering, or Making Decisions Difficulty Not on file 01/11/2023 Doing Errands Independently Difficulty Not on fi le 01/11/2023 Education Answer Date Recorded Help with school or training? Not on file Preferred Language Not on file 01/11/2023 Sex and Gender Information Value Date Recorded Sex Assigned at Not on file Legal Sex Male 3:13 PM EDT Gender Identity Not on file Sexual Orientation Not on file Last Filed Vital Signs Vital Sign Reading Time Taken Comments Blood Pressure - - Pulse 84 08/21/2018 3:27 PM EDT Temperature 38.7 C (101.6 F) 08/21/2018 3:27 PM EDT Respiratory Rate 12 08/21/2018 3:27 PM EDT Oxygen Saturation 98% 08/21/2018 3:27 PM EDT Inhaled Oxygen Concentration - - Weight 83.8 kg (184 lb 12.8 oz) 08/21/2018 3:27 PM EDT Height 172.7 cm (5' 8 ) 08/21/2018 3:27 PM EDT Body Mass Index 28.1 08/21/2018 3:27 PM EDT Plan of Treatment Health Maintenance Due Date Last Done Comments TDAP/TD VACCINES (1 - Tdap) 2004 ANNUAL PHYSICAL 08/21/2018 HEPATITIS C SCREENING 08/21/2018 INFLUENZA VACCINE 10/31/2024 Pneumococcal Vaccine 0-49 Aged Out No longer eligible based on patient's age to complete this topic Insurance [employer] Care Teams Sap Portal Architect Relationship Specialty Start Date End Date Provider, Known [facility] [place] [address] PCP - General 08/21/18
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
--- NOTE | 2025-03-20 15:00 | CT_ITS ---
FINAL REPORT TECHNIQUE: thin section axial CT with and without IV contrast supplemented with multiplanar 3-D reconstruction of the head. This study was performed with techniques to keep radiation doses as low as reasonably achievable, (ALARA)individualized dose reduction techniques using automated exposure control or adjustment of mA and/or kV according to the patient's size were employed. CLINICAL HISTORY: Intermittent left-sided facial numbness FINDINGS: The cranial circulation is unremarkable. There is no significant stenosis, aneurysm or occlusion. IMPRESSION: No evidence of aneurysm or major branch occlusion. Reviewed, Interpreted and Dictated by Del Quarles MD Transcribed by Evie Griffith Authenticated and [facility]
--- NOTE | 2025-03-20 15:00 | CT_ITS ---
FINAL REPORT TECHNIQUE: NASCET technique utilized for stenosis evaluation. This study was performed with techniques to keep radiation doses as low as reasonably achievable, (ALARA). Individualized dose reduction techniques using automated exposure control or adjustment of mA and/or kV according to the patient's size were employed. CLINICAL HISTORY: Intermittent left-sided facial numbness FINDINGS: RIGHT CAROTID: No significant stenosis is seen of the cervical common or internal carotid artery. LEFT CAROTID: No significant stenosis seen of the cervical common or internal carotid artery. VERTEBRALS: The vertebrals are patent. No significant stenosis is present. IMPRESSION: No significant arterial abnormality. Reviewed, Interpreted and Dictated by Del Quarles MD Transcribed by Evie Griffith Authenticated and [facility]
--- NOTE | 2025-03-20 15:00 | CT_ITS ---
FINAL REPORT TECHNIQUE: Axial CT images were performed through the head. Coronal reformatted images were submitted. This study was performed with techniques to keep radiation doses as low as reasonably achievable (ALARA). Individualized dose reduction techniques using automated exposure control or adjustment of mA and/or kV according to the patient's size were employed. CLINICAL HISTORY: Intermittent left-sided facial numbness FINDINGS: The ventricles are normal in size. There is no evidence of hemorrhage. There is no mass or edema identified. There is no abnormal extra-axial fluid seen. There is mild mucoperiosteal thickening in both maxillary sinuses consistent with chronic sinusitis. IMPRESSION: No acute intracranial process. Reviewed, Interpreted and Dictated by Del Quarles MD Transcribed by Evie Griffith Authenticated and [facility]
[2025-03-20 15:04] LABS: Hematocrit 47.1 % (42.0-52.0); Hemoglobin 16.4 g/dL (14.1-18.0); Immature Granulocytes % 0.3 %; Mean Corpuscular HGB Conc 34.8 g/dL (31.8-35.4); Mean Corpuscular Hemoglobin 31.4 pg (27.0-31.2); Mean Corpuscular Volume 90.2 fl (80-94); Nucleated Red Blood Cells % 0 %; Platelet Count 205 K/mm3 (142-424); Red Blood Count 5.22 M/mm3 (4.60-6.20); Red Cell Distribution Width-SD 39.2 fL; White Blood Count 6.7 K/mm3 (4.8-10.8)
--- NOTE | 2025-03-20 15:06 | CT_ITS ---
FINAL REPORT TECHNIQUE: Axial images were obtained of the cervical spine by computed tomography. Coronal and sagittal reconstruction process performed. This study was performed with techniques to keep radiation doses as low as reasonably achievable (ALARA). Individualized dose reduction techniques using automated exposure control or adjustment of mA and/or kV according to the patient''s size were employed. CLINICAL HISTORY: Neck pain left radicular symptomatology FINDINGS: Cervical vertebrae show normal height. There is reversal of the cervical lordosis. There is moderate anterior osteophyte formation at C4-5 and C6-7. There is disc space narrowing at C6-7. There is no malalignment. The facets are properly aligned. IMPRESSION: Degenerative changes without acute osseous abnormality. Reviewed, Interpreted and Dictated by eDl Quarles MD Transcribed by Evie Griffith Authenticated and [facility]
[2025-03-20 15:21] LABS: Alanine Aminotransferase 42 U/L (12-78); Albumin Level 4.8 g/dl (3.5-5.0); Albumin/Globulin Ratio 1.6 (1.1-1.8); Alkaline Phosphatase 88 U/L (38-126); Anion Gap 12.2 mEq/L (5-15); Aspartate Amino Transferase 31 U/L (17-59); Bilirubin,Total 0.7 mg/dl (0.2-1.3); Blood Urea Nitrogen 12 mg/dl (9-20); Calcium 9.3 mg/dl (8.4-10.2); Carbon Dioxide 26 mmol/L (22.0-30.0); Chloride 103 mmol/L (98-107); Creatinine Clearance Estimated 110 mL/min (50-200); Creatinine,Serum 1.10 mg/dl (0.66-1.25); Estimated Glomerular Filt Rate 75 ml/min (>60); GFR (African American) 90 ML/MIN (>60); Globulin 3.0 g/dL (1.3-3.2); Glucose 109 mg/dl (74-100); Lipase 43 U/L (23-300); Magnesium 2.3 mg/dl (1.6-2.3); Potassium 4.2 mmoL/L (3.5-5.1); Sodium 137 mmol/L (136-145); Total Protein,Serum 7.8 g/dl (6.3-8.2)
[2025-03-20 15:26] LABS: D-Dimer < 0.25 ug/mL (0.0-0.5)
[2025-03-20] MEDS: SODIUM CHLORIDE 0.9% 10ML SYR (RAD ONLY) 10 ML IV (15:33)
[2025-03-20] MEDS: 0.9 % SODIUM CHLORIDE 50 ML VIAL IV (15:33)
[2025-03-20] MEDS: IOPAMIDOL-370 (76%);100ML BOTTLE 85 ML IV (15:33)
[2025-03-20 15:34] LABS: NT Pro Brain Natriuretic Pep. < 20.0 pg/mL (0-125)
[2025-03-20 15:38] LABS: Troponin I < 0.01 ng/ml (0.00-0.034)
[2025-03-20 15:52] VITALS: BP 144/94; PULSE 85; O2SAT 98
[2025-03-20 16:00] VITALS: BP 135/92; PULSE 71; O2SAT 98
--- NOTE | 2025-03-20 16:16 | ECG_ITS ---
APPROVED REPORT Exam: Resting ECG HR:68 bpm ECG Measurements Heart Rate [address] 146 P 18 QRSd 107 QRS 55 QT 410 T 17 QTc 427 Conclusion SINUS RHYTHM INCOMPLETE RIGHT BUNDLE BRANCH BLOCK [90+ ms QRS DURATION, TERMINAL R IN V1/V2, 40+ ms S IN I/aVL/V4/V5/V6] BORDERLINE ECG UNCONFIRMED REPORT Normal sinus rhythm. No STEMI Electronically signed by : AURORA SNYDER, 03/20/2025 21:38:24
--- NOTE | 2025-03-20 16:19 | PC.NURSE ---
updated pt on POC, no needs voiced at this time
[2025-03-20 16:30] VITALS: BP 138/96; PULSE 67; O2SAT 98
[2025-03-20 16:38] LABS: Hepatitis C Ab Qual. W/ RFX NEGATIVE (Negative)
[2025-03-20 17:00] VITALS: BP 129/91; PULSE 67; O2SAT 99
[2025-03-20 17:12] VITALS: BP 129/91; PULSE 67; RESP 16; TEMP 36.7; O2SAT 99
== END 2025-03-20 17:12 | disposition home or self-care (01) ==
PROVIDERS: Physician Assistant; Emergency Provider Student in an Organized Health Care Education/Training Program; PCP Family Medicine
DX: R06.02 Shortness of breath (principal); R20.2 Paresthesia of skin; F41.1 Generalized anxiety disorder
CPT/HCPCS: 70450; 70496; 70498; 72125; 80053; 83690; 83735; 83880; 84484; 85025; 85378; 86803; 87389; 93005; 99285; Q9967